=== PATIENT | male | born 1950 | race Caucasian/White ===

== ENCOUNTER 2018-06-19 17:21 | Emergency (ER) | payer OTHER ==
[2018-06-19 19:41] LABS: Urine Blood NEGATIVE (NEG); Urine Glucose NEGATIVE (NEG); Urine Protein TRACE (NEG)
[2018-06-19 19:47] LABS: Protime INR 1.01
[2018-06-19 19:49] LABS: Absolute Lymphocytes (CBC) 2.5 K/uL (0.7-4.9); Absolute Monocytes 1.2 K/uL (0.1-1.3); Absolute Neutrophil 4.1 K/uL (1.8-8.0); Eosinophils % 4.1 % (0-4.4); Lymphocytes % 30.3 % (15.3-44.8); MCH 29.9 pg (27.0-35.0); Monocytes % 14.8 % (3.3-12.3); RBC Red Blood Cell Count 5.27 M/uL (4.33-5.43)
[2018-06-19 19:57] LABS: Albumin 3.8 g/dL (3.4-5.0); Bilirubin Direct 0.1 mg/dL (0-0.2); Bilirubin Total 0.5 mg/dL (0.2-1.0); Magnesium 2.5 mg/dL (1.8-2.4); Protein, Total 7.5 g/dL (6.4-8.2)
--- NOTE | 2018-06-19 20:44 | RAD REPORT ---
EXAM DESCRIPTION: RAD - Chest Single View - 06/19/2018 8:31 pm CLINICAL HISTORY: CHEST PAIN Chest pain. COMPARISON: Chest Pa And Lat (2 Views) dated 12/29/2017; Chest Single View dated 12/28/2017; Chest Pa An d Lat (2 Views) dated 07/10/2017; Chest Single View dated 07/08/2017Chest Pa And Lat (2 Views) dated 12/29/2017; Chest Single View dated 12/28/2017; Chest Pa And Lat (2 Views) dated 07/10/2017; Chest Single Vi ew dated 07/08/2017; Chest Angio dated 12/28/2017 FINDINGS: Portable technique limits examination quality. The lungs are emphysematous but grossly clear. The heart is normal in size. No displaced fractures. IMPRESSION: Mild COPD.
[2018-06-19] MEDS ORDERED: ALBUTEROL 2.5 MG/3 ML NEB SOL ONE (20:52)
[2018-06-19] MEDS ORDERED: IPRATROPIUM BROM 0.5MG/2.5ML ONE (20:53)
[2018-06-19] MEDS ORDERED: METHYLPREDNISOLONE 125 MG INJ ONE (21:26)
[2018-06-19] MEDS ORDERED: LEVALBUTEROL 1.25 MG/3 ML NEB ONE (21:26)
--- NOTE | 2018-06-19 23:26 | EDPHYS ---
Physician Documentation [facility] Name: Rony Dewitt Age: 67 yrs Sex: Male : 1950 Arrival Date: 06/19/2018 Time: 17:24 Bed 20 Private MD: JEANIE SETHI ED Physician Gonzalo Anand HPI: 06/19 19:46 This 67 yrs old Male presents to ER via Ambulatory with complaints of jr8 Breathing Difficulty. 19:46 The patient has shortness of breath at rest. Onset: The symptoms/episode began/occurred jr8 gradually, 3 day(s) ago. Duration: The symptoms are continuous. The patient's shortness of breath is aggravated by light activity. Associated signs and symptoms: Pertinent positives: chest pain. Severity of symptoms: At their worst the symptoms were moderate in the emergency department the symptoms have improved mildly. It is unknown whether or not the patient has had similar symptoms in the past. The patient has not recently seen a physician. Patient stated that he started with chest pain 3 days ago with exertional dyspnea. Pain worse with activity. Started to have shortness of breath at rest today that was unrelieved with home breathing treatments. Historical: - Allergies: 17:40 No Known Allergies; hj - Home Meds: 17:40 albuterol sulfate 2.5 mg /3 mL (0.083 %) Inhl nebu 3 mL twice a day [Active]; albuterol hj sulfate 90 mcg/actuation Inhl HFAA 1 puff every 4-6 hours [Active]; - PMHx: 17:40 COPD; hj - PSHx: 17:40 Nose reconstruction; hj - Immunization history:: Adult Immunizations up to date. - Social history:: Smoking status: Patient/guardian denies using tobacco, Patient/guardian denies using alcohol. - Ebola Screening: : Patient negative for fever greater than or equal to 101.5 degrees Fahrenheit, and additional compatible Ebola Virus Disease symptoms Patient denies exposure to infectious person Patient denies travel to an Ebola-affected area in the 21 days before illness onset. ROS: 19:46 Eyes: Negative for injury, pain, redness, and discharge, ENT: Negative for injury, jr8 pain, and discharge, Neck: Negative for injury, pain, and swelling, Abdomen/GI: Negative for abdominal pain, nausea, vomiting, diarrhea, and constipation, Back: Negative for injury and pain, MS/Extremity: Negative for injury and deformity, Skin: Negative for injury, rash, and discoloration, Neuro: Negative for headache, weakness, numbness, tingling, and seizure. 19:46 Cardiovascular: Positive for chest pain, Negative for edema, orthopnea, palpitations, paroxysmal nocturnal dyspnea. 19:46 Respiratory: Positive for dyspnea on exertion, shortness of breath, wheezing. Exam: 19:46 Eyes: Pupils equal round and reactive to light, extra-ocular motions intact. Lids and jr8 lashes normal. Conjunctiva and sclera are non-icteric and not injected. Cornea within normal limits. Periorbital areas with no swelling, redness, or edema. ENT: Nares patent. No nasal discharge, no septal abnormalities noted. Tympanic membranes are normal and external auditory canals are clear. Oropharynx with no redness, swelling, or masses, exudates, or evidence of obstruction, uvula midline. Mucous membranes moist. Neck: Trachea midline, no thyromegaly or masses palpated, and no cervical lymphadenopathy. Supple, full range of motion without nuchal rigidity, or vertebral point tenderness. No Meningismus. Cardiovascular: Regular rate and rhythm with a normal S1 and S2. No gallops, murmurs, or rubs. Normal PMI, no JVD. No pulse deficits. Abdomen/GI: Soft, non-tender, with normal bowel sounds. No distension or tympany. No guarding or rebound. No evidence of tenderness throughout. Back: No spinal tenderness. No costovertebral tenderness. Full range of motion. Skin: Warm, dry with normal turgor. Normal color with no rashes, no lesions, and no evidence of cellulitis. MS/ Extremity: Pulses equal, no cyanosis. Neurovascular intact. Full, normal range of motion. Neuro: Awake and alert, GCS 15, oriented to person, place, time, and situation. Cranial nerves II-XII grossly intact. Motor strength 5/5 in all extremities. Sensory grossly intact. Cerebellar exam normal. Normal gait. 19:46 Respiratory: the patient does not display signs of respiratory distress, Respirations: normal, symetrical, no use of accessory muscles, no grunting, no evidence of nasal flaring, no prolonged exhalations, no pursed lip breathing, no retractions, no shallow respirations, no splinting, no tachypnea, Breath sounds: wheezing: expiratory that is moderate, is heard diffusely. Vital Signs: 17:41 BP 127 / 75; Pulse 95; Resp 18; Temp 97.5(O); Pulse Ox 93% on R/A; Weight 68.04 kg; hj Height 5 ft. 7 in. (170.18 cm); Pain 7/10; 19:17 BP 152 / 93; Pulse 90; Resp 20; Pulse Ox 98% ; Pain 7/10; ea 20:22 BP 132 / 89; Pulse 81; Resp 18; Pulse Ox 99% on R/A; ea 21:29 BP 142 / 83; Pulse 99; Resp 20; Pulse Ox 99% on Nebulizer Mask; ea 22:30 BP 138 / 75; Pulse 83; Resp 19; Pulse Ox 96% on R/A; Pain 0/10; ea 23:32 BP 128 / 78; Pulse 77; Resp 19; Temp 97.8(O); Pulse Ox 96% on R/A; Pain 0/10; ea 17:41 Body Mass Index 23.49 (68.04 kg, 170.18 cm) hj MDM: 18:57 Patient medically screened. jr8 23:25 Data reviewed: vital signs, nurses notes, lab test result(s), EKG, radiologic studies, jr8 plain films, and as a result, I will discharge patient. Data interpreted: Pulse oximetry: on room air is 98 %. Interpretation: normal. Counseling: I had a detailed discussion with the patient and/or guardian regarding: the historical points, exam findings, and any diagnostic results supporting the discharge/admit diagnosis, lab results, radiology results, the need for outpatient follow up, a family practitioner, to return to the emergency department if symptoms worsen or persist or if there are any questions or concerns that arise at home. Response to treatment: the patient's symptoms have markedly improved after treatment. 06/19 18:58 Order name: Basic Metabolic Panel; Complete Time: 20:16 8 06/19 18:58 Order name: CBC with Diff; Complete Time: 20:16 8 06/19 18:58 Order name: LFT's; Complete Time: 20:16 8 06/19 18:58 Order name: Magnesium; Complete Time: 20:16 8 06/19 18:58 Order name: NT PRO-BNP; Complete Time: 20:16 06/19 18:58 Order name: PT-INR; Complete Time: 20:16 06/19 17:43 Order name: EKG; Complete Time: 17:43 06/19 18:58 Order name: Troponin (emerg Dept Use Only); Complete Time: 19:53 06/19 18:58 Order name: XRAY Chest (1 view); Complete Time: 20:47 06/19 19:26 Order name: Urine Dipstick--Ancillary (enter results); Complete Time: 19:48 [facility] 06/19 21:16 Order name: Troponin (emerg Dept Use Only); Complete Time: 23:25 06/19 18:58 Order name: Cardiac monitoring; Complete Time: 20:21 06/19 18:58 Order name: EKG - Nurse/Tech; Complete Time: 20:21 06/19 18:58 Order name: IV Saline Lock; Complete Time: 20:21 06/19 18:58 Order name: Labs collected and sent; Complete Time: 20:21 06/19 18:58 Order name: O2 Per Protocol; Complete Time: 20:21 06/19 18:58 Order name: O2 Sat Monitoring; Complete Time: 20:21 06/19 18:58 Order name: Urine Dipstick-Ancillary (obtain specimen); Complete Time: 20:21 Administered Medications: 20:51 Drug: Albuterol - atroVENT (3:1) (2.5 mg - 0.5 mg) 3 ml Route: Nebulizer; ea 21:15 Follow up: Response: No adverse reaction; Wheezing unchanged ea 21:30 Drug: Xopenex (3) 1.25 mg Route: Inhalation; ea 21:30 Drug: SOLU-Medrol 125 mg Route: IVP; Site: right forearm; ea 22:40 Follow up: Response: No adverse reaction; Marked relief of symptoms ea Disposition: 06/20 21:08 Co-signature as Attending Physician, Gonzalo Anand MD I agree with the assessment and ps1 plan of care. Disposition: 06/19/18 23:26 Discharged to Home. Impression: Chronic obstructive pulmonary disease with (acute) exacerbation, Chest pain, unspecified. - Condition is Stable. - Discharge Instructions: Nonspecific Chest Pain, Chronic Obstructive Pulmonary Disease Exacerbation, Aspirin and Your Heart. - Prescriptions for Zithromax Z- Jaedn 250 mg Oral Tablet - take 1 tablet by ORAL route as directed for 5 days Day 1 - take two (2) tablets one time. Day 2, 3, 4 , 5 take one (1) tablet once daily.; 6 tablet. Prednisone 20 mg Oral Tablet - take 2 tablet by ORAL route once daily for 5 days; 10 tablet. - Medication Reconciliation Form, Thank You Letter, Antibiotic Education, Prescription Opioid Use form. - Follow up: JEANIE SETHI; When: 1 - 2 days; Reason: Recheck today's complaints, Continuance of care, Re-evaluation by your physician. - Problem is new. - Symptoms have improved. Signatures: Dispatcher [employer] EDMS Cristo Arzate PA PA jr8 Rigo Quintero RN RN Deanna Vences RN RN ea Singer, Phillip, MD MD ps1 Corrections: (The following items were deleted from the chart) 06/19 23:42 23:26 06/19/2018 23:26 Discharged to Home. Impression: Chronic obstructive pulmonary ea disease with (acute) exacerbation; Chest pain, unspecified. Condition is Stable. Forms are Medication Reconciliation Form, Thank You Letter, Antibiotic Education, Prescription Opioid Use. Follow up: JEANIE SETHI; When: 1 - 2 days; Reason: Recheck today's complaints, Continuance of care, Re-evaluation by your physician. Problem is new. Symptoms have improved. jr8
--- NOTE | 2018-06-19 23:26 | ER ---
Nurse's Notes [facility] Name: Rony Dewitt Age: 67 yrs Sex: Male : 1950 Arrival Date: 06/19/2018 Time: 17:24 Bed 20 Private MD: JEANIE SETHI Diagnosis: Chronic obstructive pulmonary disease with (acute) exacerbation;Chest pain, unspecified Presentation: 06/19 17:38 Presenting complaint: Patient states: i have chest pain and i couldn't breathe for 3 hj days now; reports SOB; denies fever and chills; reports wheezing;. Transition of care: patient was not received from another setting of care. Onset of symptoms was June 19, 2018. Risk Assessment: Do you want to hurt yourself or someone else? Patient reports no desire to harm self or others. Initial Sepsis Screen: Does the patient meet any 2 criteria? No. Patient's initial sepsis screen is negative. Does the patient have a suspected source of infection? No. Patient's initial sepsis screen is negative. Care prior to arrival: None. 17:38 Method Of Arrival: Ambulatory 17:38 Acuity: MARAL 3 hj Triage Assessment: 17:40 General: Appears in no apparent distress. uncomfortable, Behavior is calm, cooperative, hj appropriate for age. Pain: Complains of pain in chest. Respiratory: Reports shortness of breath Onset: The symptoms/episode began/occurred suddenly, the patient has mild shortness of breath. Historical: - Allergies: 17:40 No Known Allergies; hj - Home Meds: 17:40 albuterol sulfate 2.5 mg /3 mL (0.083 %) Inhl nebu 3 mL twice a day [Active]; albuterol hj sulfate 90 mcg/actuation Inhl HFAA 1 puff every 4-6 hours [Active]; - PMHx: 17:40 COPD; hj - PSHx: 17:40 Nose reconstruction; hj - Immunization history:: Adult Immunizations up to date. - Social history:: Smoking status: Patient/guardian denies using tobacco, Patient/guardian denies using alcohol. - Ebola Screening: : Patient negative for fever greater than or equal to 101.5 degrees Fahrenheit, and additional compatible Ebola Virus Disease symptoms Patient denies exposure to infectious person Patient denies travel to an Ebola-affected area in the 21 days before illness onset. Screenin:39 Abuse screen: Denies threats or abuse. Denies injuries from another. Nutritional hj screening: No deficits noted. Tuberculosis screening: No symptoms or risk factors identified. Fall Risk None identified. Assessment: 17:40 Cardiovascular: Rhythm is. Respiratory: Airway is patent Respiratory effort is even, hj unlabored, Respiratory pattern is regular, symmetrical, 19:18 General: Appears uncomfortable, Behavior is calm, cooperative, appropriate for age. ea Pain: Denies pain. Neuro: Level of Consciousness is awake, alert, obeys commands, Oriented to person, place, time, situation, Speech is normal. Cardiovascular: Heart tones S1 S2 present. Cardiovascular: Patient's skin is warm and dry. Respiratory: Airway is patent Respiratory effort is even, unlabored, Respiratory pattern is regular, symmetrical, Breath sounds are diminished bilaterally. Parent/caregiver reports the patient having shortness of breath on exertion. GI: Abdomen is non-distended, Bowel sounds present X 4 quads. : No signs and/or symptoms were reported regarding the genitourinary system. EENT: No signs and/or symptoms were reported regarding the EENT system. Derm: Skin is pink, warm \T\ dry. Musculoskeletal: Circulation, motion, and sensation intact. 20:21 Reassessment: Patient and/or family updated on plan of care and expected duration. Pain ea level reassessed. Patient is alert, oriented x 3, equal unlabored respirations, skin warm/dry/pink. family at bedside. 21:27 Reassessment: Patient and/or family updated on plan of care and expected duration. Pain ea level reassessed. Patient is alert, oriented x 3, equal unlabored respirations, skin warm/dry/pink. 22:40 Reassessment: Patient and/or family updated on plan of care and expected duration. Pain ea level reassessed. Patient is alert, oriented x 3, equal unlabored respirations, skin warm/dry/pink. Patient states symptoms have improved. 23:30 Reassessment: Patient and/or family updated on plan of care and expected duration. Pain ea level reassessed. Patient is alert, oriented x 3, equal unlabored respirations, skin warm/dry/pink. 23:42 Reassessment: Patient and/or family updated on plan of care and expected duration. Pain ea level reassessed. Patient is alert, oriented x 3, equal unlabored respirations, skin warm/dry/pink. Discharge instructions given to patient, verbalized the understanding of instruction. Vital Signs: 17:41 BP 127 / 75; Pulse 95; Resp 18; Temp 97.5(O); Pulse Ox 93% on R/A; Weight 68.04 kg; hj Height 5 ft. 7 in. (170.18 cm); Pain 7/10; 19:17 BP 152 / 93; Pulse 90; Resp 20; Pulse Ox 98% ; Pain 7/10; ea 20:22 BP 132 / 89; Pulse 81; Resp 18; Pulse Ox 99% on R/A; ea 21:29 BP 142 / 83; Pulse 99; Resp 20; Pulse Ox 99% on Nebulizer Mask; ea 22:30 BP 138 / 75; Pulse 83; Resp 19; Pulse Ox 96% on R/A; Pain 0/10; ea 23:32 BP 128 / 78; Pulse 77; Resp 19; Temp 97.8(O); Pulse Ox 96% on R/A; Pain 0/10; ea 17:41 Body Mass Index 23.49 (68.04 kg, 170.18 cm) hj ED Course: 17:24 Patient arrived in ED. rg4 17:24 JEANIE SETHI is Private Physician. rg4 17:39 Triage completed. hj 17:40 Arm band placed on right wrist. hj 17:41 Patient has correct armband on for positive identification. Placed in gown. Bed in low hj position. Call light in reach. Side rails up X 1. 18:57 [facility] jr8 18:57 Gonzalo Anand MD is Attending Physician. jr8 19:17 Deanna Sorenson, FLY is Primary Nurse. ea 19:58 Inserted saline lock: 20 gauge in right forearm, using aseptic technique. Blood oe collected. 20:31 XRAY Chest (1 view) In Process Unspecified. EDMS 23:26 JEANIE SETHI is Referral Physician. jr8 23:32 No provider procedures requiring assistance completed. ea 23:41 IV discontinued, intact, bleeding controlled, No redness/swelling at site. Pressure ea dressing applied. Administered Medications: 20:51 Drug: Albuterol - atroVENT (3:1) (2.5 mg - 0.5 mg) 3 ml Route: Nebulizer; ea 21:15 Follow up: Response: No adverse reaction; Wheezing unchanged ea 21:30 Drug: Xopenex (3) 1.25 mg Route: Inhalation; ea 21:30 Drug: SOLU-Medrol 125 mg Route: IVP; Site: right forearm; ea 22:40 Follow up: Response: No adverse reaction; Marked relief of symptoms ea Outcome: 23:26 Discharge ordered by MD. henao 23:41 Discharged to home ambulatory, with family. ea 23:41 Condition: improved 23:41 Discharge instructions given to patient, Instructed on discharge instructions, follow up and referral plans. medication usage, Demonstrated understanding of instructions, follow-up care, medications, Prescriptions given X 2. 23:42 Patient left the ED. ea Signatures: Dispatcher [employer] EDMS Cristo Arzate PA PA jr8 Rigo Quintero, RN RN Renée Figueroa rg4 Dejon Gibbs Elena, RN RN purvi Corrections: (The following items were deleted from the chart) 17:43 17:38 Presenting complaint: Patient states: i have chest pain and i couldn't breathe hj for 3 days now; reports SOB; denies fever and chills; hj 17:43 17:41 Pulse 95bpm; Resp 18bpm; Pulse Ox 93% RA; Temp 97.5F Oral; 68.04 kg; Height 5 ft. hj 7 in.; BMI: 23.4; Pain 7/10; hj
[2018-06-19 23:53] VITALS: O2SAT 96
[2018-06-19 23:54] VITALS: BP 128/78; TEMP 97.8
--- NOTE | 2018-06-20 06:47 | EKG ---
Test Date: 2018-06-19 Test Time: 20:05:35 Senior Web Developer: AMY MEASUREMENT RESULTS: Intervals: Rate: 71 TX: 188 QRSD: 96 QT: 396 QTc: 430 [place]: P: 68 TX: 188 QRS: 35 T: 67 INTERPRETIVE STATEMENTS: Normal sinus rhythm Normal ECG Compared to ECG 12/28/2017 06:42:35 Sinus tachycardia no longer present Electronically Signed On 06-20-18 06:46:06 CDT by Ramon Caba
== END 2018-06-19 23:42 | disposition home or self-care (01) ==
LOC: ER 17:21
DX: J44.1 Chronic obstructive pulmonary disease with (acute) exacerbation (principal)
CPT/HCPCS: 36415; 71045; 80048; 80076; 81003; 83735; 83880; 84484 ×2; 85025; 85610; 93005; J2930; 94640; 96374; 99284

== ENCOUNTER 2018-10-27 12:19 | Emergency (ER) | payer OTHER ==
[2018-10-27] MEDS ORDERED: ALBUTEROL 2.5 MG/3 ML NEB SOL ONE (13:23)
[2018-10-27] MEDS ORDERED: METHYLPREDNISOLONE 125 MG INJ ONE (13:23)
[2018-10-27] MEDS ORDERED: IPRATROPIUM BROM 0.5MG/2.5ML ONE (13:23)
--- NOTE | 2018-10-27 13:24 | RAD REPORT ---
EXAM DESCRIPTION: RAD - Chest Single View - 10/27/2018 1:19 pm CLINICAL HISTORY: SOB Chest pain. COMPARISON: Chest Single View dated 06/19/2018; Chest Pa And Lat (2 Views) dated 12/29/2017; Chest Sing le View dated 12/28/2017; Chest Pa And Lat (2 Views) dated 07/10/2017 FINDINGS: Portable technique limits examination quality. The lungs are grossly clear. The heart is normal in size. No displaced fractures. IMPRESSION: No acute intrathoracic process suspected.
[2018-10-27 14:01] LABS: ALT/SGPT 26 U/L (12-78); AST/SGOT 13 U/L (15-37); Albumin 3.8 g/dL (3.4-5.0); Alkaline Phosphatase 64 U/L (45-117); BUN Blood Urea Nitrogen 13 mg/dL (7-18); Bicarbonate 32 mmol/L (21-32); Bilirubin Direct 0.1 mg/dL (0-0.2); Bilirubin Total 0.3 mg/dL (0.2-1.0); Glucose Level 117 mg/dL (74-106); Magnesium 2.4 mg/dL (1.8-2.4); NT PRO-BNP 29 pg/mL (<125); Potassium 4.7 mmol/L (3.5-5.1); Protein, Total 7.6 g/dL (6.4-8.2); Sodium Level 140 mmol/L (136-145); Troponin (Emerg Dept Use Only) < 0.02 ng/mL (0.0-0.045)
[2018-10-27 14:08] LABS: Absolute Lymphocytes (CBC) 1.9 K/uL (0.7-4.9); Absolute Monocytes 0.9 K/uL (0.1-1.3); Absolute Neutrophil 5.5 K/uL (1.8-8.0); Basophils % 1.4 % (0-1.3); Eosinophils % 1.8 % (0-4.4); Hematocrit 46.2 % (39.6-49.0); Lymphocytes % 21.8 % (15.3-44.8); MCH 30.5 pg (27.0-35.0); MPV 8.6 fL (7.6-11.3); Monocytes % 10.7 % (3.3-12.3); RBC Red Blood Cell Count 5.08 M/uL (4.33-5.43)
[2018-10-27 14:09] LABS: Protime INR 0.99
--- NOTE | 2018-10-27 15:11 | EKG ---
Test Date: 2018-10-27 Test Time: 13:28:08 Radio Division Lieutenant: YESENIA MEASUREMENT RESULTS: Intervals: Rate: 74 MA: 184 QRSD: 92 QT: 382 QTc: 424 [place]: P: 67 MA: 184 QRS: 54 T: 76 INTERPRETIVE STATEMENTS: Normal sinus rhythm Normal ECG Compared to ECG 06/19/2018 20:05:35 No significant changes Electronically Signed On 10-27-18 15:10:22 LINEN CONTROLLER by Eugenio Pressley
--- NOTE | 2018-10-27 15:14 | ER ---
Nurse's Notes [facility] Name: Rony Dewitt Age: 67 yrs Sex: Male : 1950 Arrival Date: 10/27/2018 Time: 12:23 Bed 25 Private MD: JEANIE SETHI Diagnosis: Chronic obstructive pulmonary disease with (acute) exacerbation Presentation: 10/27 12:27 Presenting complaint: SOB x 1 week, worse over las 2 days. On Zithromax Day 4 for URI. hb Transition of care: patient was not received from another setting of care. Onset of symptoms was October 27, 2018. Risk Assessment: Do you want to hurt yourself or someone else? Patient reports no desire to harm self or others. Care prior to arrival: None. 12:27 Method Of Arrival: Ambulatory 12:27 Acuity: MARAL 3 hb 13:50 Initial Sepsis Screen: Does the patient meet any 2 criteria? No. Patient's initial ss sepsis screen is negative. Does the patient have a suspected source of infection? No. Patient's initial sepsis screen is negative. Historical: - Allergies: 12:29 peanut; hb - Home Meds: 12:29 albuterol sulfate 2.5 mg /3 mL (0.083 %) Inhl nebu 3 mL twice a day [Active]; albuterol hb sulfate 90 mcg/actuation Inhl HFAA 1 puff every 4-6 hours [Active]; Symbicort inhalation inhalation [Active]; - PMHx: 12:29 COPD; hb - PSHx: 12:29 Nose reconstruction; hb - Immunization history:: Adult Immunizations up to date. - Social history:: Smoking status: Patient/guardian denies using tobacco. - Ebola Screening: : No symptoms or risks identified at this time. Screenin:11 Abuse screen: Denies threats or abuse. Denies injuries from another. Nutritional ss screening: No deficits noted. Tuberculosis screening: Never had TB. Fall Risk None identified. Assessment: 13:00 General: Appears in no apparent distress. comfortable, Behavior is calm, cooperative, ss Reports feeling ill for x 1 week, pt reports that he feels as if his breathing has not improved and he feels as if he cannot get his breath out. Pt states he needs solu Medrol IV. Denies fever. Pain: Denies pain. Neuro: Level of Consciousness is awake, alert, obeys commands, Oriented to person, place, time, situation. Cardiovascular: Capillary refill < 3 seconds is brisk in bilateral fingers Patient's skin is warm and dry. Rhythm is regular. Respiratory: Airway is patent Trachea midline Respiratory effort is even, unlabored, Respiratory pattern is regular, symmetrical, Breath sounds with wheezes bilaterally. Respiratory: Reports shortness of breath at rest on exertion cough that is productive, persistent since x 1 weeks. GI: Patient currently denies abdominal pain, diarrhea, nausea, vomiting. EENT: Nares are clear Oral mucosa is moist. Derm: Skin is pink, warm \T\ dry. normal. Musculoskeletal: Circulation, motion, and sensation intact. Range of motion: intact in all extremities, Swelling absent. 14:59 Reassessment: Patient appears in no apparent distress at this time. Patient and/or ss family updated on plan of care and expected duration. Pain level reassessed. Patient is alert, oriented x 3, equal unlabored respirations, skin warm/dry/pink. Patient denies pain at this time. Patient states feeling better. Patient states symptoms have improved. Vital Signs: 12:28 BP 148 / 98; Pulse 87; Resp 18; Temp 98.9; Pulse Ox 94% on R/A; Pain 0/10; hb 14:30 BP 152 / 88; Pulse 89; Resp 16; Pulse Ox 94% on R/A; Pain 0/10; ss ED Course: 12:23 Patient arrived in ED. mr 12:24 JEANIE SETHI is Private Physician. mr 12:28 Triage completed. hb 12:29 Arm band placed on right wrist. hb 13:02 Pito Sabillon NP is PHCP. pm1 13:02 Jag Pizano MD is Attending Physician. pm1 13:11 Delphine Butterfield RN is Primary Nurse. ss 13:11 Patient has correct armband on for positive identification. Bed in low position. Call ss light in reach. Side rails up X 1. 13:18 X-ray completed. Portable x-ray completed in exam room. Patient tolerated procedure ls3 well. 13:20 XRAY Chest (1 view) In Process Unspecified. EDMS 13:20 Inserted saline lock: 20 gauge in left antecubital area, using aseptic technique. Blood ss collected. 13:59 EKG done, by airframe and powerplant technician. reviewed by Pito Sabillon NP. dt2 15:08 JEANIE SETHI is Referral Physician. pm1 15:16 No provider procedures requiring assistance completed. IV discontinued, intact, ss bleeding controlled, No redness/swelling at site. Pressure dressing applied. Administered Medications: 13:21 Drug: SOLU-Medrol 125 mg Route: IVP; Site: left antecubital; ss 13:28 Drug: Albuterol - atroVENT (3:1) (2.5 mg - 0.5 mg) 3 ml Route: Nebulizer; ss Outcome: 15:09 Discharge ordered by MD. pm1 15:16 Discharged to home ambulatory. ss 15:16 Condition: improved 15:16 Discharge instructions given to patient, Instructed on discharge instructions, follow up and referral plans. medication usage, Demonstrated understanding of instructions, follow-up care, medications, Prescriptions given X 1. 15:18 Patient left the ED. ss Signatures: Dispatcher [employer] STACITX Ofelia David Shelby, FLY BILL ss Pito Sabillon, DARINEL CUSTOMER SUCCESS SPECIALIST pm1 Nessa Long RN RN Florence Song dt2 Angelo Brownlee ls3 Corrections: (The following items were deleted from the chart) 13:32 13:11 Reassessment: Pt to US at this time VIA wheelchair. Pt refused oral antibiotic as ss she states she is unable to swallow oral pills and/or capsules. Ryann Quarles notified. ss
--- NOTE | 2018-10-27 15:14 | EDPHYS ---
Physician Documentation [facility] Name: Rony Dewitt Age: 67 yrs Sex: Male : 1950 Arrival Date: 10/27/2018 Time: 12:23 Bed 25 Private MD: JEANIE SETHI ED Physician Jag Pizano HPI: 10/27 13:30 This 67 yrs old Male presents to ER via Ambulatory with complaints of pm1 Shortness Of Breath. 13:30 The patient has shortness of breath at rest. Onset: The symptoms/episode began/occurred pm1 1 week(s) ago. Duration: The symptoms are continuous, and are unchanged since they started. The patient's shortness of breath is aggravated by nothing, is alleviated by nothing. Associated signs and symptoms: Pertinent positives: productive cough, Pertinent negatives: chest pain, fever, nausea, vomiting. Severity of symptoms: Pain is currently a 0 / 10. The patient has experienced similar episodes in the past, chronically, Hx of COPD. . The patient has been recently seen by a physician: the patient's primary care provider, Mary Sethi prescribed the patient azithromycin, 5 day course, and prednisone 5 mg PO daily. Historical: - Allergies: 12:29 peanut; hb - Home Meds: 12:29 albuterol sulfate 2.5 mg /3 mL (0.083 %) Inhl nebu 3 mL twice a day [Active]; albuterol hb sulfate 90 mcg/actuation Inhl HFAA 1 puff every 4-6 hours [Active]; Symbicort inhalation inhalation [Active]; - PMHx: 12:29 COPD; hb - PSHx: 12:29 Nose reconstruction; hb - Immunization history:: Adult Immunizations up to date. - Social history:: Smoking status: Patient/guardian denies using tobacco. - Ebola Screening: : No symptoms or risks identified at this time. ROS: 13:30 Constitutional: Negative for fever, chills, and weight loss, Eyes: Negative for injury, pm1 pain, redness, and discharge, ENT: Negative for injury, pain, and discharge, Neck: Negative for injury, pain, and swelling, Cardiovascular: Negative for chest pain, palpitations, and edema. 13:30 Abdomen/GI: Negative for abdominal pain, nausea, vomiting, diarrhea, and constipation, Back: Negative for injury and pain, : Negative for injury, bleeding, discharge, and swelling, MS/Extremity: Negative for injury and deformity, Skin: Negative for injury, rash, and discoloration. 13:30 Neuro: Negative for headache, weakness, numbness, tingling, and seizure. 13:30 Respiratory: Positive for cough, shortness of breath, Negative for wheezing. Exam: 13:30 Constitutional: This is a well developed, well nourished patient who is awake, alert, pm1 and in no acute distress. Head/Face: Normocephalic, atraumatic. Eyes: Pupils equal round and reactive to light, extra-ocular motions intact. Lids and lashes normal. Conjunctiva and sclera are non-icteric and not injected. Cornea within normal limits. Periorbital areas with no swelling, redness, or edema. ENT: Nares patent. No nasal discharge, no septal abnormalities noted. Tympanic membranes are normal and external auditory canals are clear. Oropharynx with no redness, swelling, or masses, exudates, or evidence of obstruction, uvula midline. Mucous membranes moist. Neck: Trachea midline, no thyromegaly or masses palpated, and no cervical lymphadenopathy. Supple, full range of motion without nuchal rigidity, or vertebral point tenderness. No Meningismus. Chest/axilla: Normal chest wall appearance and motion. Nontender with no deformity. No lesions are appreciated. Cardiovascular: Regular rate and rhythm with a normal S1 and S2. No gallops, murmurs, or rubs. Normal PMI, no JVD. No pulse deficits. Abdomen/GI: Soft, non-tender, with normal bowel sounds. No distension or tympany. No guarding or rebound. No evidence of tenderness throughout. Back: No spinal tenderness. No costovertebral tenderness. Full range of motion. Skin: Warm, dry with normal turgor. Normal color with no rashes, no lesions, and no evidence of cellulitis. MS/ Extremity: Pulses equal, no cyanosis. Neurovascular intact. Full, normal range of motion. 13:30 Respiratory: the patient does not display signs of respiratory distress, Respirations: normal, Breath sounds: bronchial sounds, are heard diffusely. 13:30 Neuro: Orientation: is normal, Motor: moves all fours, Gait: is steady, at a normal pace, without difficulty. Vital Signs: 12:28 BP 148 / 98; Pulse 87; Resp 18; Temp 98.9; Pulse Ox 94% on R/A; Pain 0/10; hb 14:30 BP 152 / 88; Pulse 89; Resp 16; Pulse Ox 94% on R/A; Pain 0/10; ss MDM: 13:02 Patient medically screened. pm1 13:10 ED course: Patient offered prednisone by mouth. Educated that PO if he is able to pm1 swallow is better, but he wants "solumedrol shot" because it works faster and he will be able to "run out of here after" it as it has in the past.. 15:00 ED course: Patient was taking prednisone 5 mg PO daily and has about 10 doses left. Has pm1 been taking azithromycin and has two doses remaining. No pneumonia present on chest x-ray. I feel that prednisone dosage is insufficient, instructed patient to stop taking prednisone 5 mg and to take the steroid that I will prescribe instead. 15:00 Data reviewed: vital signs. Data interpreted: Pulse oximetry: on room air is 94 %. pm1 Interpretation: baseline for his COPD per patient. 15:00 Counseling: I had a detailed discussion with the patient and/or guardian regarding: the pm1 historical points, exam findings, and any diagnostic results supporting the discharge/admit diagnosis, lab results, radiology results, the need for outpatient follow up, to return to the emergency department if symptoms worsen or persist or if there are any questions or concerns that arise at home. 10/27 13:07 Order name: Basic Metabolic Panel; Complete Time: 14:58 pm1 10/27 13:07 Order name: CBC with Diff; Complete Time: 14:58 pm1 10/27 13:07 Order name: LFT's; Complete Time: 14:58 pm1 10/27 13:07 Order name: Magnesium; Complete Time: 14:58 pm1 10/27 13:07 Order name: NT PRO-BNP; Complete Time: 14:58 pm1 10/27 13:07 Order name: PT-INR; Complete Time: 14:58 pm1 10/27 13:07 Order name: Troponin (emerg Dept Use Only); Complete Time: 14:58 pm1 10/27 13:07 Order name: XRAY Chest (1 view); Complete Time: 13:24 pm1 10/27 13:07 Order name: EKG; Complete Time: 13:07 pm1 10/27 13:07 Order name: Cardiac monitoring; Complete Time: 13:33 pm1 10/27 13:07 Order name: EKG - Nurse/Tech; Complete Time: 13:33 pm1 10/27 13:07 Order name: IV Saline Lock; Complete Time: 13:33 pm1 10/27 13:07 Order name: Labs collected and sent; Complete Time: 13:33 pm1 10/27 13:07 Order name: O2 Per Protocol; Complete Time: 13:33 pm1 10/27 13:07 Order name: O2 Sat Monitoring; Complete Time: 13:33 pm1 Administered Medications: 13:21 Drug: SOLU-Medrol 125 mg Route: IVP; Site: left antecubital; 13:28 Drug: Albuterol - atroVENT (3:1) (2.5 mg - 0.5 mg) 3 ml Route: Nebulizer; Disposition: 18:15 Co-signature as Attending Physician, Jag Pizano MD I agree with the assessment and kdr plan of care. Disposition: 10/27/18 15:09 Discharged to Home. Impression: Chronic obstructive pulmonary disease with (acute) exacerbation. - Condition is Stable. - Discharge Instructions: Chronic Obstructive Pulmonary Disease, How to Use an Inhaler, Chronic Obstructive Pulmonary Disease Exacerbation. - Prescriptions for Prednisone 20 mg Oral Tablet - take 3 tablet by ORAL route once daily for 5 days; 15 tablet. - Medication Reconciliation Form, Thank You Letter, Antibiotic Education, Prescription Opioid Use form. - Follow up: Emergency Department; When: As needed; Reason: Worsening of condition. Follow up: JEANIE SETHI; When: 2 - 3 days; Reason: Recheck today's complaints, Continuance of care, Re-evaluation by your physician. - Problem is new. - Symptoms have improved. Signatures: Dispatcher [employer] EDVA Jag Pizano MD MD [facility] Delphine Butterfield RN RN ss Pito Sabillon, [employer] pm1 Nessa Long RN RN Corrections: (The following items were deleted from the chart) 15:18 15:09 10/27/2018 15:09 Discharged to Home. Impression: Chronic obstructive pulmonary ss disease with (acute) exacerbation. Condition is Stable. Forms are Medication Reconciliation Form, Thank You Letter, Antibiotic Education, Prescription Opioid Use. Follow up: Emergency Department; When: As needed; Reason: Worsening of condition. Follow up: JEANIE SETHI; When: 2 - 3 days; Reason: Recheck today's complaints, Continuance of care, Re-evaluation by your physician. Problem is new. Symptoms have improved. pm1
[2018-10-27 15:57] VITALS: TEMP 98.9; O2SAT 94
[2018-10-27 15:59] VITALS: BP 152/88
== END 2018-10-27 15:18 | disposition home or self-care (01) ==
LOC: ER 12:19
DX: J44.1 Chronic obstructive pulmonary disease with (acute) exacerbation (principal); Z79.51 Long term (current) use of inhaled steroids; Z79.899 Other long term (current) drug therapy
CPT/HCPCS: 36415; 71045; 80048; 80076; 83735; 83880; 84484; 85025; 85610; 93005; 94640; 96374; 99284; J2930

== ENCOUNTER 2019-09-10 08:30 | Emergency (ER) | payer OTHER ==
--- NOTE | 2019-09-10 08:50 | ER ---
Nurse's Notes [facility] Name: Rony Dewitt Age: 68 yrs Sex: Male : 1950 Arrival Date: 09/10/2019 Time: 08:32 Bed 16 Private MD: JEANIE SETHI Diagnosis: Laceration without foreign body of right hand-skin tear Presentation: 09/10 08:43 Presenting complaint: Patient states: i ripped my skin on Tuesday afternoon on metal tw2 and i want to make sure im doing right with it. Transition of care: patient was not received from another setting of care. Onset of symptoms was September 10, 2019. Risk Assessment: Do you want to hurt yourself or someone else? Patient reports no desire to harm self or others. Initial Sepsis Screen: Does the patient meet any 2 criteria? No. Patient's initial sepsis screen is negative. Does the patient have a suspected source of infection? No. Patient's initial sepsis screen is negative. Care prior to arrival: None. 08:43 Method Of Arrival: Ambulatory tw2 08:43 Acuity: MARAL 5 tw2 Triage Assessment: 08:45 General: Appears in no apparent distress. slender, well groomed, Behavior is calm, tw2 cooperative, appropriate for age. Pain: Denies pain. Neuro: Level of Consciousness is awake, alert, obeys commands, Oriented to person, place, time, situation. Cardiovascular: Patient's skin is warm and dry. Respiratory: Airway is patent Respiratory effort is even, unlabored, Respiratory pattern is regular, symmetrical. Derm: skin tear noted to dorsum of RIGHT hand, no s/s infection noted. Historical: - Allergies: 08:48 Peanut; tw2 - Home Meds: 08:48 Symbicort inhalation [Active]; albuterol sulfate 2.5 mg /3 mL (0.083 %) Inhl nebu 3 mL tw2 twice a day [Active]; albuterol sulfate 90 mcg/actuation Inhl HFAA 1 puff every 4-6 hours [Active]; - PMHx: 08:48 COPD; tw2 - PSHx: 08:48 Nose reconstruction; tw2 - Immunization history:: Last tetanus immunization: unknown. - Social history:: Smoking status: . - Ebola Screening: : Patient denies travel to an Ebola-affected area in the 21 days before illness onset. Screenin:45 Abuse screen: Denies threats or abuse. Nutritional screening: No deficits noted. tw2 Tuberculosis screening: No symptoms or risk factors identified. Fall Risk None identified. Assessment: 08:57 Reassessment: Patient and/or family updated on plan of care and expected duration. Pain tw2 level reassessed. Patient is alert, oriented x 3, equal unlabored respirations, skin warm/dry/pink. Reassessment: see triage assessment. Vital Signs: 08:44 BP 152 / 94; Pulse 85; Resp 18; Temp 97.9(TE); Pulse Ox 100% on R/A; Weight 65.32 kg; tw2 Height 5 ft. 7 in. (170.18 cm); Pain 0/10; 08:44 Body Mass Index 22.55 (65.32 kg, 170.18 cm) tw2 ED Course: 08:32 Patient arrived in ED. mr 08:33 JEANIE SETHI is Private Physician. mr 08:39 Bed in low position. Call light in reach. tw2 08:42 Genesis Centeno F[facility]-C [facility]. kb 08:42 Irving Starkey MD is Attending Physician. kb 08:43 Yudelka Portillo, FLY is Primary Nurse. tw2 08:44 Triage completed. tw2 08:45 Arm band placed on. tw2 08:57 No provider procedures requiring assistance completed. Patient did not have IV access tw2 during this emergency room visit. Administered Medications: 08:53 Drug: Tetanus-Diphtheria Toxoid Adult 0.5 ml {Manager [place]: [employer]. Exp: 04/03/2021. Lot #: [id number]. } Route: IM; Site: left deltoid; 08:57 Follow up: Response: No adverse reaction tw2 Outcome: 08:50 Discharge ordered by . kb 08:57 Discharged to home ambulatory. tw2 08:57 Condition: stable 08:57 Discharge instructions given to patient, Instructed on discharge instructions, follow up and referral plans. Demonstrated understanding of instructions, follow-up care. 08:58 Patient left the ED. tw2 Signatures: Genesis Centeno FNP-C FNP-Radha ValadezaOfelia mr Yudelka Portillo, RN RN tw2 Corrections: (The following items were deleted from the chart) 08:47 08:44 Pulse 85bpm; Resp 18bpm; Pulse Ox 100% RA; Temp 97.9F Temporal; 65.32 kg; Height tw2 5 ft. 7 in.; BMI: 22.5; Pain 0/10; tw2 08:47 08:44 BP 132 / 110; Pulse 85bpm; Resp 18bpm; Pulse Ox 100% RA; Temp 97.9F Temporal; tw2 65.32 kg; Height 5 ft. 7 in.; BMI: 22.5; Pain 0/10; tw2 08:48 08:44 Pulse 85bpm; Resp 18bpm; Pulse Ox 100% RA; Temp 97.9F Temporal; 65.32 kg; Height tw2 5 ft. 7 in.; BMI: 22.5; Pain 0/10; tw2
--- NOTE | 2019-09-10 08:50 | EDPHYS ---
Physician Documentation [facility] Name: Rony Dewitt Age: 68 yrs Sex: Male : 1950 Arrival Date: 09/10/2019 Time: 08:32 Bed 16 Private MD: JEANIE SETHI ED Physician Irving Starkey HPI: 09/10 08:47 This 68 yrs old Male presents to ER via Ambulatory with complaints of Skin kb Tear(s). 08:47 The patient has a laceration related to: working, occurred at home, and there are no kb complicating factors. The injury was accidental. The laceration(s) is(are) located on the dorsum of right hand. Onset: The symptoms/episode began/occurred 2 day(s) ago. Associated signs and symptoms: The patient has no apparent associated signs or symptoms. The patient has not experienced similar symptoms in the past. The patient has not recently seen a physician. Pt reports he caught his hand on a piece of metal on Tuesday and caused a skin tear. Reports he cleaned it and dressed it, but wanted to get it looked at just in case it needed something else. Historical: - Allergies: 08:48 Peanut; tw2 - Home Meds: 08:48 Symbicort inhalation [Active]; albuterol sulfate 2.5 mg /3 mL (0.083 %) Inhl nebu 3 mL tw2 twice a day [Active]; albuterol sulfate 90 mcg/actuation Inhl HFAA 1 puff every 4-6 hours [Active]; - PMHx: 08:48 COPD; tw2 - PSHx: 08:48 Nose reconstruction; tw2 - Immunization history:: Last tetanus immunization: unknown. - Social history:: Smoking status: . - Ebola Screening: : Patient denies travel to an Ebola-affected area in the 21 days before illness onset. ROS: 08:49 Constitutional: Negative for fever, chills, and weight loss, Cardiovascular: Negative kb for chest pain, palpitations, and edema, Respiratory: Negative for shortness of breath, cough, wheezing, and pleuritic chest pain, Abdomen/GI: Negative for abdominal pain, nausea, vomiting, diarrhea, and constipation, MS/Extremity: Negative for injury and deformity, Neuro: Negative for headache, weakness, numbness, tingling, and seizure. 08:49 Skin: Positive for of the dorsum of right hand, skin tear. Exam: 08:46 Constitutional: This is a well developed, well nourished patient who is awake, alert, kb and in no acute distress. Head/Face: Normocephalic, atraumatic. ENT: Nares patent. No nasal discharge, no septal abnormalities noted. Tympanic membranes are normal and external auditory canals are clear. Oropharynx with no redness, swelling, or masses, exudates, or evidence of obstruction, uvula midline. Mucous membranes moist. Neck: Trachea midline, no thyromegaly or masses palpated, and no cervical lymphadenopathy. Supple, full range of motion without nuchal rigidity, or vertebral point tenderness. No Meningismus. Chest/axilla: Normal chest wall appearance and motion. Nontender with no deformity. No lesions are appreciated. Cardiovascular: Regular rate and rhythm with a normal S1 and S2. No gallops, murmurs, or rubs. Normal PMI, no JVD. No pulse deficits. Respiratory: Lungs have equal breath sounds bilaterally, clear to auscultation and percussion. No rales, rhonchi or wheezes noted. No increased work of breathing, no retractions or nasal flaring. Abdomen/GI: Soft, non-tender, with normal bowel sounds. No distension or tympany. No guarding or rebound. No evidence of tenderness throughout. Back: No spinal tenderness. No costovertebral tenderness. Full range of motion. MS/ Extremity: Pulses equal, no cyanosis. Neurovascular intact. Full, normal range of motion. Neuro: Awake and alert, GCS 15, oriented to person, place, time, and situation. Cranial nerves II-XII grossly intact. Motor strength 5/5 in all extremities. Sensory grossly intact. Cerebellar exam normal. Normal gait. 08:46 Skin: injury, skin tear to top of right hand. Vital Signs: 08:44 BP 152 / 94; Pulse 85; Resp 18; Temp 97.9(TE); Pulse Ox 100% on R/A; Weight 65.32 kg; tw2 Height 5 ft. 7 in. (170.18 cm); Pain 0/10; 08:44 Body Mass Index 22.55 (65.32 kg, 170.18 cm) tw2 MDM: 08:42 Patient medically screened. kb 08:45 Data reviewed: vital signs, nurses notes. Data interpreted: Pulse oximetry: on room air kb is 100 %. Interpretation: normal. Counseling: I had a detailed discussion with the patient and/or guardian regarding: the historical points, exam findings, and any diagnostic results supporting the discharge/admit diagnosis, the need for outpatient follow up, a family practitioner, to return to the emergency department if symptoms worsen or persist or if there are any questions or concerns that arise at home. 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 Exp: tw2 04/03/2021. Lot #: [id number]. } Route: IM; Site: left deltoid; 08:57 Follow up: Response: No adverse reaction tw2 Disposition: 09:09 Co-signature as Attending Physician, Irving Starkey MD. rn Disposition: 09/10/19 08:50 Discharged to Home. Impression: Laceration without foreign body of right hand - skin tear. - Condition is Stable. - Discharge Instructions: Skin Tear Care, [id number]. - Medication Reconciliation Form, Thank You Letter, Antibiotic Education, Prescription Opioid Use form. - Follow up: Emergency Department; When: As needed; Reason: Worsening of condition. Follow up: Private Physician; When: 2 - 3 days; Reason: Recheck today's complaints, Continuance of care, Re-evaluation by your physician. Signatures: Genesis Centeno, WINDER HELPER-C WINDER HELPER-Ckb Irving Starkey MD MD rn Wise, Tara, RN RN tw2 Corrections: (The following items were deleted from the chart) 08:58 08:50 09/10/2019 08:50 Discharged to Home. Impression: Laceration without foreign body tw2 of right hand - skin tear. Condition is Stable. Forms are Medication Reconciliation Form, Thank You Letter, Antibiotic Education, Prescription Opioid Use. Follow up: Emergency Department; When: As needed; Reason: Worsening of condition. Follow up: Private Physician; When: 2 - 3 days; Reason: Recheck today's complaints, Continuance of care, Re-evaluation by your physician. kb
[2019-09-10] MEDS ORDERED: TETANUS & DIPHTHERIA TOX,ADULT 0.5 ML VIAL ONE (08:51)
[2019-09-10 09:13] VITALS: BP 152/94; TEMP 97.9; O2SAT 100
== END 2019-09-10 08:58 | disposition home or self-care (01) ==
LOC: ER 08:30
DX: S61.411A Laceration without foreign body of right hand, initial encounter (principal); W26.8XXA Contact with other sharp object(s), not elsewhere classified, initial encounter; Y93.89 Activity, other specified; Y92.009 Unspecified place in unspecified non-institutional (private) residence as the place of occurrence of the external cause; J44.9 Chronic obstructive pulmonary disease, unspecified; Z23 Encounter for immunization; Z91.010 Allergy to peanuts
CPT/HCPCS: 90471; 90714; 99283

== ENCOUNTER 2019-10-20 07:39 | Emergency (ER) | payer OTHER ==
[2019-10-20] MEDS ORDERED: LEVALBUTEROL 1.25 MG/3 ML NEB ONE (07:58)
[2019-10-20] MEDS ORDERED: METHYLPREDNISOLONE 125 MG INJ ONE (07:58)
--- NOTE | 2019-10-20 09:11 | ER ---
Nurse's Notes [facility] Name: Rony Dewitt Age: 68 yrs Sex: Male : 1950 Arrival Date: 10/20/2019 Time: 07:40 Bed 8 Private MD: Diagnosis: Chronic obstructive pulmonary disease with (acute) exacerbation Presentation: 10/20 07:52 Presenting complaint: Patient states: shortness of breath and productive cough x 2-3 ss weeks. Patient reports he was put on antibiotics, but do not seem to be helping. Is wanting a steroid shot. Denies fever. Transition of care: patient was not received from another setting of care. Onset of symptoms is unknown. Risk Assessment: Do you want to hurt yourself or someone else? Patient reports no desire to harm self or others. Initial Sepsis Screen: Does the patient meet any 2 criteria? HR > 90 bpm. Does the patient have a suspected source of infection? Yes: Productive cough/pneumonia. Care prior to arrival: None. 07:52 Method Of Arrival: Ambulatory ss 07:52 Acuity: MARAL 4 ss Historical: - Allergies: 07:54 Peanut; ss - PMHx: 07:54 COPD; ss - PSHx: 07:54 Nose reconstruction; ss - Immunization history:: Adult Immunizations up to date. - Social history:: Smoking status: Patient/guardian denies using tobacco, but has a distant history of tobacco abuse. - Ebola Screening: : Patient denies exposure to infectious person Patient denies travel to an Ebola-affected area in the 21 days before illness onset. - Family history:: not pertinent. - Hospitalizations: : No recent hospitalization is reported. Screenin:00 Abuse screen: Denies threats or abuse. Denies injuries from another. Nutritional sg screening: No deficits noted. Tuberculosis screening: No symptoms or risk factors identified. Never had TB. Fall Risk None identified. Assessment: 08:00 General: Appears in no apparent distress. well groomed, well developed, well nourished, sg Behavior is calm, cooperative, appropriate for age. Pain: Denies pain. Neuro: Level of Consciousness is awake, alert, obeys commands, Oriented to person, place, time, Speech is normal, Facial symmetry appears normal. Cardiovascular: Capillary refill is brisk in bilateral fingers Patient's skin is warm and dry. Chest pain is denied. Respiratory: Reports labored breathing on exertion, resolved by inactivity Airway is patent Respiratory effort is even, unlabored, Respiratory pattern is regular, symmetrical, Denies cough, pain with respiration, pain with cough, pain with movement, air hunger. GI: Abdomen is flat, non-distended. : No signs and/or symptoms were reported regarding the genitourinary system. EENT: No signs and/or symptoms were reported regarding the EENT system. Derm: Skin is pink, warm \T\ dry. Musculoskeletal: Circulation, motion, and sensation intact. Range of motion: intact in all extremities. Vital Signs: 07:51 BP 140 / 96; Pulse 96; Resp 19; Temp 98.2(TE); Pulse Ox 93% on R/A; Weight 65.77 kg; ss Height 5 ft. 7 in. (170.18 cm); Pain 0/10; 09:00 BP 133 / 80; Pulse 88; Resp 17; Temp 98.2; Pulse Ox 96% on R/A; sg 07:51 Body Mass Index 22.71 (65.77 kg, 170.18 cm) ss 07:51 Pt reports that his baseline pulse ox level is 87-93% on RA ss ED Course: 07:40 Patient arrived in ED. as 07:46 Irving Starkey MD is Attending Physician. rn 07:47 Bethel Wilkins, FLY is Primary Nurse. sg 07:51 Arm band placed on right wrist. ss 07:53 Triage completed. ss 08:00 Patient has correct armband on for positive identification. Bed in low position. Call sg light in reach. Side rails up X2. Pulse ox on. NIBP on. Warm blanket given. Head of bed elevated. 08:24 XRAY Chest Pa And Lat (2 Views) In Process Unspecified. EDMS 09:10 No provider procedures requiring assistance completed. Patient did not have IV access sg during this emergency room visit. Administered Medications: 08:00 Drug: SOLU-Medrol 125 mg {Note: per patient request.} Route: IM; Site: left deltoid; sg 09:00 Follow up: Response: No adverse reaction sg 08:07 Drug: Xopenex (3) 1.25 mg Route: Inhalation; sg Outcome: 09:10 Discharged to home ambulatory, with family. sg 09:10 Condition: good 09:10 Discharge instructions given to patient, Instructed on discharge instructions, follow up and referral plans. safety practices, Demonstrated understanding of instructions, follow-up care, Prescriptions given X 2. 09:11 Discharge ordered by . rn 09:16 Patient left the ED. sg Signatures: Dispatcher [employer] EDBethel Prabhakar RN RN Kelley Patiño Roman, MD MD rn Smirch, Shelby, RN RN ss Corrections: (The following items were deleted from the chart) 07:56 07:52 Acuity: MARAL 3 ss ss
--- NOTE | 2019-10-20 09:11 | EDPHYS ---
Physician Documentation [facility] Name: Rony Dewitt Age: 68 yrs Sex: Male : 1950 Arrival Date: 10/20/2019 Time: 07:40 Bed 8 Private MD: ED Physician Irving Starkey HPI: 10/20 08:04 This 68 yrs old Male presents to ER via Ambulatory with complaints of COPD rn Exacerbation. 08:04 The patient has shortness of breath during heavy activity. Onset: The symptoms/episode rn began/occurred yesterday. Duration: The symptoms are intermittent. The patient's shortness of breath is aggravated by coughing, walking. Severity of symptoms: At their worst the symptoms were mild in the emergency department the symptoms are unchanged. The patient has experienced similar episodes in the past. The patient has not recently seen a physician. Reports cough, productive of yellow sputum, no fever, on oxygen at home, reports sob only with exertion. Reports doesn't feel bad, "just here for solumedrol". . Historical: - Allergies: 07:54 Peanut; ss - PMHx: 07:54 COPD; ss - PSHx: 07:54 Nose reconstruction; ss - Immunization history:: Adult Immunizations up to date. - Social history:: Smoking status: Patient/guardian denies using tobacco, but has a distant history of tobacco abuse. - Ebola Screening: : Patient denies exposure to infectious person Patient denies travel to an Ebola-affected area in the 21 days before illness onset. - Family history:: not pertinent. - Hospitalizations: : No recent hospitalization is reported. ROS: 08:04 Constitutional: Negative for fever, chills, and weight loss, ENT: Negative for injury, rn pain, and discharge, Cardiovascular: Negative for chest pain, palpitations, and edema, Respiratory: Negative for pleuritic chest pain, + cough Abdomen/GI: Negative for abdominal pain, nausea, vomiting, diarrhea, and constipation, MS/Extremity: Negative for injury and deformity, Skin: Negative for injury, rash, and discoloration, Neuro: Negative for headache, weakness, numbness, tingling, and seizure. Exam: 08:04 Constitutional: This is a well developed, well nourished patient who is awake, alert, rn and in no acute distress. Ambulatory to room without difficulty or assistance. Head/Face: Normocephalic, atraumatic. ENT: MMM, no stridor Cardiovascular: Regular rate and rhythm. No pulse deficits. Respiratory: + mild bilateral wheezing, no retractions, speaking full sentences. Skin: Warm, dry with normal turgor. Normal color with no rashes, no lesions, and no evidence of cellulitis. MS/ Extremity: Pulses equal, no cyanosis. Neurovascular intact. Full, normal range of motion. Equal circumference. Neuro: Awake and alert, GCS 15 Vital Signs: 07:51 BP 140 / 96; Pulse 96; Resp 19; Temp 98.2(TE); Pulse Ox 93% on R/A; Weight 65.77 kg; ss Height 5 ft. 7 in. (170.18 cm); Pain 0/10; 09:00 BP 133 / 80; Pulse 88; Resp 17; Temp 98.2; Pulse Ox 96% on R/A; sg 07:51 Body Mass Index 22.71 (65.77 kg, 170.18 cm) ss 07:51 Pt reports that his baseline pulse ox level is 87-93% on RA ss MDM: 07:46 Patient medically screened. rn 09:08 Differential diagnosis: Bronchitis Chronic Obstructive Pulmonary Disease pneumonia, rn Pneumothorax reactive airway disease. Data reviewed: vital signs, nurses notes, radiologic studies, plain films, and as a result, I will discharge patient. Counseling: I had a detailed discussion with the patient and/or guardian regarding: the historical points, exam findings, and any diagnostic results supporting the discharge/admit diagnosis, radiology results, the need for outpatient follow up, to return to the emergency department if symptoms worsen or persist or if there are any questions or concerns that arise at home. Special discussion: I discussed with the patient/guardian in detail that at this point there is no indication for admission to the hospital. It is understood, however, that if the symptoms persist or worsen the patient needs to return immediately for re-evaluation. 10/20 07:54 Order name: XRAY Chest Pa And Lat (2 Views) rn Administered Medications: 08:00 Drug: SOLU-Medrol 125 mg {Note: per patient request.} Route: IM; Site: left deltoid; sg 09:00 Follow up: Response: No adverse reaction 08:07 Drug: Xopenex (3) 1.25 mg Route: Inhalation; Disposition: 10/20/19 09:11 Discharged to Home. Impression: Chronic obstructive pulmonary disease with (acute) exacerbation. - Condition is Stable. - Discharge Instructions: Chronic Obstructive Pulmonary Disease Exacerbation. - Prescriptions for Prednisone 20 mg Oral Tablet - take 3 tablet by ORAL route once daily for 5 days; 15 tablet. Zithromax Z- Jaden 250 mg Oral Tablet - take 1 tablet by ORAL route as directed for 5 days Day 1 - take two (2) tablets one time. Day 2, 3, 4 , 5 take one (1) tablet once daily.; 6 tablet. - Medication Reconciliation Form, Thank You Letter, Antibiotic Education, Prescription Opioid Use form. - Follow up: Private Physician; When: As needed; Reason: Recheck today's complaints, Re-evaluation by your physician. - Problem is new. - Symptoms have improved. Signatures: Dispatcher [employer] EDMS Bethel Wilkins RN RN sg Nieto, Roman, MD MD rn Smirch, Shelby, RN RN ss Corrections: (The following items were deleted from the chart) 09:16 09:11 10/20/2019 09:11 Discharged to Home. Impression: Chronic obstructive pulmonary sg disease with (acute) exacerbation. Condition is Stable. Forms are Medication Reconciliation Form, Thank You Letter, Antibiotic Education, Prescription Opioid Use. Follow up: Private Physician; When: As needed; Reason: Recheck today's complaints, Re-evaluation by your physician. Problem is new. Symptoms have improved. rn
--- NOTE | 2019-10-20 09:22 | RAD REPORT ---
EXAM DESCRIPTION: Archie Gray (2 Views)10/20/2019 8:29 am CLINICAL HISTORY: Cough COMPARISON: 2018 FINDINGS: No significant change in mild to moderate bilateral interstitial lung opacities The heart is normal size IMPRESSION: No significant change in mild to moderate bilateral social lung opacities which may rep resent an atypical pneumonia or scarring
[2019-10-20 12:25] VITALS: BP 140/96; TEMP 98.2; O2SAT 93
== END 2019-10-20 09:16 | disposition home or self-care (01) ==
LOC: ER 07:39
DX: J44.1 Chronic obstructive pulmonary disease with (acute) exacerbation (principal); Z91.010 Allergy to peanuts
CPT/HCPCS: 71046; 96372; 99284; J2930